=== PATIENT | male | born 1955 | race Caucasian/White ===

== ENCOUNTER 2021-09-02 07:31 | Outpatient (CLI) | payer MEDICARE, SELFPAY ==
--- NOTE | 2021-09-02 08:00 | ECG_ITS ---
Measurements Intervals Grant Rate: 106 P: 58 WA: 163 QRS: 55 QRSD: 71 T: 49 QT: 301 QTc: 400 Interpretive Statements SINUS TACHYCARDIA RSR' IN V1 OR V2, PROBABLY NORMAL VARIANT ABNORMAL ECG Electronically Signed On 09-02-2021 8:04:19 [employer] by Jian Estrada D.O.
== END 2021-09-02 07:32 | disposition home or self-care (01) ==
LOC: ANHSURGERY 07:39
PROVIDERS: PCP Physician Assistant; Visit Provider Urology
DX: I10 Essential (primary) hypertension (principal); Z01.818 Encounter for other preprocedural examination; R94.31 Abnormal electrocardiogram [ECG] [EKG]
CPT/HCPCS: 93005

== ENCOUNTER 2021-09-03 01:26 | Day surgery (SDC) | payer MEDICARE, SELFPAY ==
[2021-08-28 10:20] VITALS: BMI 24.9
--- NOTE | 2021-08-28 10:33 | PC.NURSE ---
Report to the Outpatient Waiting Room, entrance under the green pavilion located off [facility], at time __11:00AM on date 09/03/21 . OR Time: __1:00PM . - You and your visitor will be asked a series of questions to screen for COVID 19 for your protection. - A mask is required within the hospital. - Only one visitor is allowed at this time. Patient visitors will be guided where to wait when not with patient. Preoperative COVID Testing Requirements: No COVID Test needed if: (proof is required; if not received patient will have Rapid Test prior to entry) - Patient has received COVID Vaccine at least 14 days prior to procedure date or - Patient has positive COVID test result within last 90 days of surgery date. COVID Test needed if above criteria is not met If not COVID vaccinated a COVID test must be conducted within 72 hours of surgery and patient is asked to isolate self from time of testing until procedure. You will go to the [facility] for your COVID testing. The [facility] is located at the corner of [address] [facility]. You will only be called if COVID results are positive and your surgeon may reschedule your elective surgery date. Patients may have clear liquids (water, carbonated beverages, clear teas, apple juice) until 3 hours prior to surgery with a maximum of 20 ounces. - No food from midnight until time of surgery - Infants may have breast milk until 4 hours before surgery, infant formula 6 hours prior to surgery. - Children will be allowed to drink immediately following surgery. If applicable, please bring a bottle or sippy cup to assist with drinking. Juice, water, soda, and popsicles are readily available. For infants on formula, please bring formula the day of surgery. Pacifiers are allowed. Take the following medications with a SIP of water the morning of surgery: ___NONE Medications to discontinue per physician NONE Date to take last dose Please no make-up, nail spanish, hairspray, perfume, deodorant, or body powder the day of surgery. No jewelry (including any body piercings) or valuables the day of surgery, leave them at home. Please take a shower or bath the night before, or the morning of, surgery with an antibacterial soap. Wear comfortable, loose fitting clothing. Children are encouraged to wear pajamas. - Jewelry must be removed prior to entering the operating room. Rings and piercings that are not removed may be cut off. - The hospital will not accept responsibility for valuables. - Please leave all valuables, including medications, at home the day of surgery. If you are going home after surgery, a licensed tractor trailer moving van driver must drive you home. - NO public transportation without another adult. - We recommend that an adult stay with you for 24 hours following discharge. - We also recommend that you do not drive, make important decision, drink alcoholic beverages, or take any drugs that were not prescribed by your health care provider for at least 24 hours after your discharge time. For Pediatric surgeries, we recommend two adults accompany the child home (only one inside the building at this time). Follow any additional instructions given to you from your surgeon. Telephone instructions given to ___PATIENT and asked if any additional questions and then verbalized understanding. Patient advised to call surgeon office or pre surgery nurse liaison [phone] if any additional questions.
[2021-09-03] VITALS (9 sets, daily range): BP systolic 115–179; BP diastolic 72–105; PULSE 74–90; RESP 6–16; TEMP 36.3–36.8; O2SAT 99–100
[2021-09-03] MEDS: LACTATED RINGERS 1,000 ML 30 ML IV CONT (11:00)
--- NOTE | 2021-09-03 11:01 | WPDHPUPDATE1 ---
History and Physical Update Update Date/Time: 09/03/21 11:01 History and Physical has been reviewed, including an updated exam of the patient. There are NO changes in the patient's condition. Risks, benefits, and alternatives have been discussed and questions answered. Patient agrees to proceed with procedure.
--- NOTE | 2021-09-03 11:16 | WPDANESEPPF ---
Anes - Initial Pre Proc Eval Procedure: Operation Date: 09/03/21 12:00 Proposed Procedures p Trans Urethral Resection Bladder Tumor with Gemcitabine Instillation - Surya Ochoa MD Date/Time: 09/03/21 11:16 Surgeon: Surya Ochoa MD Pre Op Diagnosis: bladder CA Patient Data Age: 66 Gender: M Height: 1.68 m Weight: 70 kg Allergies Allergy/AdvReac Type Severity Reaction Status Date / Time No Known Allergies Allergy Verified 08/28/21 10:18 Home Medications Medication Instructions Recorded Confirmed Type lisinopril 20 mg PO QAM 08/28/21 08/28/21 History Patient hx anesthesia problems: none Family hx anesthesia problems: none Results Review: All pre-operative results and documents have been reviewed as part of the pre-operative evaluation. [facility] Past Medical History Medical History Bladder cancer HTN (hypertension) Smoker Social History Social History Smoking packs per day: 0.5 Smoking cigarettes per day: 10.0 Years smoked: 50 Smoking pack-years: 25.00 Smoking status: Current every day smoker Tobacco type: cigarettes Alcohol intake: current Drinks per week: 6 Substance use: never Living arrangements: with family Additional living arrangements comments: Spiritual care concerns: No Anes - Eval Final PreProcedure Day of Procedure 09/03/21 11:16 Patient weight: normal Heart: regular rate and rhythm Lungs: clear to auscultation Airway: Mallampati scale class II Neurological: alert and oriented Last oral intake: >/= 8 hours ASA classification: III Emergent: no Anesthetic plan: proceed Anesthesia type and monitoring: general LMA and standard monitoring Results Review: All pre-operative results and documents have been reviewed as part of the pre-operative evaluation. Informed Consent: The patient's anesthetic plan and its attendant risks and benefits were discussed with the patient/family/POA. Questions were solicited and answers provided to the satisfaction of the patient/family/POA.
--- NOTE | 2021-09-03 11:22 | WPDHPUPDATE1 ---
History and Physical Update Update Date/Time: 09/03/21 11:22 History and Physical has been reviewed, including an updated exam of the patient. There are NO changes in the patient's condition. Risks, benefits, and alternatives have been discussed and questions answered. Patient agrees to proceed with procedure.
[2021-09-03] MEDS: ceFAZolin 2 GM/D5W 50 ML 2 GM/50 ML BAG IVPB (12:41)
--- NOTE | 2021-09-03 13:11 | W.PM.PROC2 ---
Procedure Note - Detailed Date of Procedure 09/03/21 Pre-op Diagnosis Bladder CA Post-op Diagnosis same Procedure Performed TURBT (large) Surgeon Surya Ochoa MD Anesthesia general Description of Procedure The patient was brought to the operative suite where he is prepped and draped in a routine sterile fashion while in the dorsal lithotomy position. This is done after the uneventful administration of systemic sedation. 2% Xylocaine jelly is introduced intraurethrally and allowed to stand for an appropriate period of time. A 24F resectoscope sheath was placed in the bladder and the bladder is circumferentially inspected carefully. 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 This area is resected in its entirety with an attempt made to include detrusor muscle for pathological evaluation of invasion. The base and periphery of this resected side is cauterized with a loop electrode. The bladder is emptied and the resectoscope was removed. The patient is taken to the recovery room having tolerated this procedure well. Drains Yes Packing No Pathology yes Complications No immediate complications Condition stable Disposition PACU
--- NOTE | 2021-09-03 13:13 | W.PM.PROC2 ---
Procedure Note - Detailed Date of Procedure 09/03/21 Pre-op Diagnosis Bladder CA Post-op Diagnosis same Procedure Performed Gemcitibine instillation Surgeon Surya Ochoa MD Anesthesia none Description of Procedure With the patient in the supine position, a 16F Ferraro catheter is placed using sterile technique. Using a protective facemask, gown and double layer of gloves Gemcitabine 2gm in 100cc saline is administered through the catheter/into the bladder. The catheter is then plugged. Patient was instructed to lie supine x20min, then to roll both the left and right x20 min. each. Total dwell time will be 60 min., after which the bladder will be drained and catheter removed. Drains Yes Packing No Pathology none sent Complications No immediate complications Condition stable Disposition PACU
[2021-09-03] MEDS: SODIUM CHLORIDE 0.9% IV 23.7 ML, GEMCITABINE HCL 1,000 MG BLADDER ×2 (13:23→13:24)
--- NOTE | 2021-09-03 13:51 | SUR.PHASEI ---
PATIENT LAYING ON LEFT SIDE X 20 MIN. TOLERATING WELL.
--- NOTE | 2021-09-03 14:06 | SUR.PHASEI ---
LAYING ON RIGHT SIDE X 20 MIN.
--- NOTE | 2021-09-03 14:37 | SUR.PHASEI ---
SMITH CATHETER DRAINED, IRRIGATED WITH 150 ML NORMAL SALINE, CATHETER REMOVED.
== END 2021-09-03 15:40 | disposition home or self-care (01) ==
PROVIDERS: PCP Physician Assistant; Visit Provider Urology
PROC: 0TBB8ZZ Excision of Bladder, Via Natural or Artificial Opening Endoscopic (ICD-10-PCS; CPT 52240; principal; 2021-09-03 12:00)
DX: C67.8 Malignant neoplasm of overlapping sites of bladder (principal); I10 Essential (primary) hypertension; F17.210 Nicotine dependence, cigarettes, uncomplicated
CPT/HCPCS: 52240; 51720; 88305; 93005; A9270; J0690; J1100; J2250; J2405; J2704; J3010; J7120; J9201